=== PATIENT | male | born 1950 | race Caucasian/White ===

== ENCOUNTER → 2020-06-21 | Outpatient (CLI) | payer MEDICARE ==
--- NOTE | 2020-06-21 15:07 | XR ---
EXAMINATION TYPE: XR thoracic spine 3 views complete, XR lumbar spine 3 views DATE OF EXAM: 06/21/2020 Comparison: None Clinical History: 70-year-old male DEFORMITY OF SPINE Findings: Thoracic spine: 12 rib bearing thoracic vertebral bodies. All pedicles are visualized. Suspect some prominent vessels on end or calcified granulomas at the left perihilar region. Mild degenerative disc disease mid to l ower thoracic spine. Vertebral body heights are preserved. Trace grade 1 anterolisthesis at C7-T1. Ot herwise, alignment is maintained. Lumbar spine: Mild dextroconvex curvature of the lumbar spine. 5 lumbar type vertebral bodies. Moderate degenerativ e disc disease at L5-S1. Hypertrophic facet arthropathy mid to lower lumbar spine. Vertebral body hei ghts are preserved and alignment is maintained. Impression: 1. Thoracic spine: Mild degenerative disc disease mid to lower thoracic spine. Degenerative trace gra de 1 anterolisthesis at C7-T1. No vertebral compression collapse. 2. Lumbar spine: Mild dextroconvex curvature/scoliosis of the lumbar spine. Moderate degenerative dis c disease L5-S1. Hypertrophic facet arthropathy mid to lower lumbar spine. No vertebral compression c ollapse or malalignment.
== END | disposition home or self-care (01) ==
LOC: RADXRMAIN 11:22
PROVIDERS: ATTEND Family Medicine
DX: M51.34 Other intervertebral disc degeneration, thoracic region (principal); M51.37 Other intervertebral disc degeneration, lumbosacral region; M47.816 Spondylosis without myelopathy or radiculopathy, lumbar region
CPT/HCPCS: 72072; 72100

== ENCOUNTER → 2020-06-27 | Outpatient (CLI) | payer BC, MEDICARE ==
[2020-06-27 09:20] LABS: HCT 43.4 % (39.0-53.0); HGB 15.1 gm/dL (13.0-17.5); MCH 33.4 pg (25.0-35.0); MCHC 34.9 g/dL (31.0-37.0); MCV 95.7 fL (80.0-100.0); Platelet Count 201 k/uL (150-450); RBC 4.53 m/uL (4.30-5.90); RDW 12.9 % (11.5-15.5); WBC 6.3 k/uL (3.8-10.6)
[2020-06-27 09:48] LABS: ALT 20 U/L (4-49); AST 34 U/L (17-59); African American GFR (CKD) >90 (>60 ml/min/1.73 sqM); Albumin 4.2 g/dL (3.5-5.0); Alkaline Phosphatase 68 U/L (38-126); Anion Gap 7 mmol/L; Blood Urea Nitrogen 18 mg/dL (9-20); Calcium 9.6 mg/dL (8.4-10.2); Carbon Dioxide 29 mmol/L (22-30); Chloride 104 mmol/L (98-107); Cholesterol 208 mg/dL (<200); Glucose 91 mg/dL (74-99); HDL Cholesterol 77 mg/dL (40-60); LDL Cholesterol,Calculated 118 mg/dL (0-99); Non-African American GFR(CKD) 86 (>60 ml/min/1.73 sqM); Potassium 4.6 mmol/L (3.5-5.1); Sodium 140 mmol/L (137-145); Total Bilirubin 0.7 mg/dL (0.2-1.3); Total Protein 7.3 g/dL (6.3-8.2); Triglycerides 66 mg/dL (<150)
[2020-06-27 16:46] LABS: Hemoglobin A1C 5.6 % (4.0-6.0)
[2020-06-27 16:52] LABS: PSA Annual Screen 2.3 ng/mL (0.0-4.0)
== END | disposition home or self-care (01) ==
LOC: LABWHC1 07:18
PROVIDERS: ATTEND Family Medicine
DX: Z00.00 Encounter for general adult medical examination without abnormal findings (principal); R73.09 Other abnormal glucose; Z12.5 Encounter for screening for malignant neoplasm of prostate
CPT/HCPCS: 80061; 80053; 85027; 83036; G0103

== ENCOUNTER → 2022-06-15 | Outpatient (CLI) | payer BC ==
--- NOTE | 2022-06-17 21:32 | MR ---
EXAMINATION TYPE: MR shoulder LT wo con DATE OF EXAM: 06/15/2022 COMPARISON: Outside left shoulder x-rays June 01, 2022 HISTORY: Left shoulder ongoing pain since November 2021 with difficulty raising arm overhead. TECHNIQUE: Multiplanar, multisequence imaging of the left shoulder is performed without contrast. FINDINGS: Rotator Cuff: Focal significant articular surface measuring 8 mm AP diameter sagittal image 4 and 10 mm transversely coronal image 12 involving significant portion of the supraspinatus tendon. Infraspin atus tendon is intact. Subscapularis tendon is thickened with increased signal and surrounding fluid. Rotator cuff muscle bulk is preserved. Acromioclavicular Joint: Mild to moderate narrowing and mild spurring. Type II downsloping acromion Glenohumeral Joint: Moderate size joint effusion. Labrum: Increased signal superior labrum consistent with degenerative tearing.. Biceps Tendon: The long head of biceps is in normal location within bicipital groove. It is thickened with increased signal along its course Bone marrow signal: No focal abnormal marrow signal is appreciated. Other: Marked fluid in the subdeltoid/subacromial bursa. IMPRESSION: 1. Full thickness articular surface tear of the supraspinatus tendon as detailed above. 2. Type II downsloping acromion with suggestion of underlying impingement. 3. Bicipital tendinosis. Subdeltoid/subacromial bursitis.
== END | disposition home or self-care (01) ==
LOC: RADMRIMAIN 12:53
PROVIDERS: ATTEND Orthopaedic Surgery
DX: M75.112 Incomplete rotator cuff tear or rupture of left shoulder, not specified as traumatic (principal); M75.52 Bursitis of left shoulder; M67.814 Other specified disorders of tendon, left shoulder

== ENCOUNTER → 2022-07-20 | Outpatient (CLI) | payer BC ==
[2022-07-20 15:47] LABS: Basophils # (A) 0.07 X 10*3/uL (0.00-0.10); Eosinophils # (A) 0.15 X 10*3/uL (0.04-0.35); Eosinophils % (A) 2.2 %; HCT 43.2 % (39.6-50.0); Immature Grans, Automated 0.3 %; Lymphocytes # (A) 1.54 X 10*3/uL (0.90-5.00); Lymphocytes % (A) 22.4 %; MCH 31.9 pg (27.0-32.0); MCHC 32.4 g/dL (32.0-37.0); MCV 98.4 fL (80.0-97.0); Mean Platelet Volume 10.3 fL (9.5-12.2); Monocytes % (A) 10.2 %; NRBC Per 100 WBC 0 /100 WBCS (0.0-0.0); Neutrophils # (A) 4.41 X 10*3/uL (1.80-7.70); Neutrophils % (A) 63.9 %; Platelet Count 242 X 10*3/uL (140-440); RBC 4.39 X 10*6/uL (4.40-5.60); RDW 13.8 % (11.5-14.5); WBC 6.89 X 10*3/uL (4.50-10.00)
[2022-07-20 16:00] LABS: Anion Gap 8.9 mmol/L (10.00-18.00); Carbon Dioxide 28.2 mmol/L (20.0-27.5); Potassium 4.6 mmol/L (3.5-5.5)
== END | disposition home or self-care (01) ==
LOC: LABPAT 09:31
PROVIDERS: ATTEND Orthopaedic Surgery
DX: Z01.818 Encounter for other preprocedural examination (principal); I23.1 Atrial septal defect as current complication following acute myocardial infarction; R94.31 Abnormal electrocardiogram [ECG] [EKG]
CPT/HCPCS: 36415; 80051; 85025; 93005